=== PATIENT | female | born 1935 | race Caucasian/White ===

== ENCOUNTER 2017-12-11 10:40 | Day surgery (SDC) | payer OTHER ==
--- NOTE | 2017-12-09 12:15 | RAD REPORT ---
EXAM DESCRIPTION: RAD - Chest Pa And Lat (2 Views) - 12/09/2017 12:09 pm CLINICAL HISTORY: Pelvic pain Chest pain. COMPARISON: CHEST SINGLE VIEW dated 06/25/2014; CHEST SINGLE VIEW dated 03/10/2012 FINDINGS: Emphysematous changes are present with ill-defined scarring in both apices, greater on the right. No focal infiltrate is detected. Significant cardiomegaly seen. Blunting of the costophrenic angles likely represents pleural thickening or small pleural effusions. No displaced fractures. IMPRESSION: Moderate cardiomegaly. Prominent COPD.
[2017-12-09 12:30] LABS: Urine Appearance CLEAR; Urine Bilirubin NEGATIVE (NEG); Urine Blood NEGATIVE (NEG); Urine Color YELLOW; Urine Glucose NEGATIVE (NEG); Urine Protein NEGATIVE (NEG); Urine Urobilinogen 0.2 mg/dL (0.2-1.0)
[2017-12-09 12:32] LABS: Absolute Lymphocytes (CBC) 1.5 K/uL (0.7-4.9); Absolute Monocytes 0.6 K/uL (0.1-1.3); Absolute Neutrophil 3.6 K/uL (1.8-8.0); Basophils % 0.7 % (0-1.3); Eosinophils % 1.4 % (0-4.4); Hematocrit 39.6 % (36.0-45.0); Lymphocytes % 25.7 % (15.3-44.8); MCV 87.6 fL (80-100); MPV 9.6 fL (7.6-11.3); Monocytes % 10.6 % (3.3-12.3); RBC Red Blood Cell Count 4.52 M/uL (3.86-4.86)
[2017-12-09 12:32] LABS: Urine Microscopic Reflex ORDER UMIC
[2017-12-09 12:34] LABS: Potassium 3.7 mmol/L (3.5-5.1); Protime INR 1.7
[2017-12-09 13:14] LABS: Urine Bacteria <20 /HPF (<20); Urine RBC <5 /HPF (NONE SEEN)
[2017-12-09 13:15] LABS: Urine Culture Reflex Order REFLEXED
--- NOTE | 2017-12-09 13:23 | EKG ---
Test Date: 2017-12-09 Test Time: 11:54:10 General Ii Farmworker: JONATAN MEASUREMENT RESULTS: Intervals: Rate: 68 FL: QRSD: 82 QT: 412 QTc: 438 [place]: P: FL: QRS: 1 T: 18 INTERPRETIVE STATEMENTS: Atrial fibrillation with a competing junctional pacemaker Moderate voltage criteria for LVH, may be normal variant Cannot rule out Septal infarct, age undetermined Abnormal ECG Compared to ECG 06/25/2014 12:28:58 Left ventricular hypertrophy now present Myocardial infarct finding still present Electronically Signed On 12-09-17 13:22:14 CDT by Keith Abraham
[2017-12-11] MEDS ORDERED: PROPOFOL 200 MG/20 ML VIAL IV ONE (11:24)
[2017-12-11] MEDS ORDERED: FENTANYL CITR 100 MCG/2 ML ONE (11:25)
[2017-12-11] MEDS ORDERED: LIDOCAINE 2% MPF 5 ML VIAL ONE (11:25)
[2017-12-11] MEDS ORDERED: Ringers Lactate 1,000 ML IV ONE (11:26)
[2017-12-11] MEDS ORDERED: GENTAMICIN 100 MG/100 ML BAG 100 MG/100 ML BAG IV ONE (11:26)
[2017-12-11] MEDS ORDERED: ONDANSETRON HCL 40 MG/20 ML VIAL ONE (11:26)
[2017-12-11] MEDS ORDERED: mitoMYcin 40 MG in WATER FOR INJ,STERILE 50 ML IV ONE (12:00)
[2017-12-11 14:52] VITALS: BP 163/92; TEMP 97.1; O2SAT 96
== END 2017-12-11 14:28 | disposition home or self-care (01) ==
LOC: OR 10:40
PROVIDERS: ATTEND Urology
PROC: 0TJB8ZZ Inspection of Bladder, Via Natural or Artificial Opening Endoscopic (ICD-10-PCS; principal; 2017-12-11 12:00)
DX: K57.30 Diverticulosis of large intestine without perforation or abscess without bleeding (principal); E78.00 Pure hypercholesterolemia, unspecified; I10 Essential (primary) hypertension; R31.0 Gross hematuria; I48.2 Chronic atrial fibrillation
CPT/HCPCS: 36415; 52000; 71046; 80048; 85025; 85610; 85730; 87086; 87088; 93005; J1580; J2405; J3010; 81003; 81015; J9280

== ENCOUNTER 2019-05-19 08:20 | Emergency (ER) | payer OTHER ==
[2019-05-19] MEDS ORDERED: ONDANSETRON 4 MG (ODT) TAB ONE (08:52)
--- NOTE | 2019-05-19 09:22 | EDPHYS ---
Physician Documentation [facility] Name: Marcela Woodall Age: 83 yrs Sex: Female : 1935 Arrival Date: 05/19/2019 Time: 08:21 Bed 19 Private MD: Disha Marsh C ED Physician Amari Mike HPI: 05/19 08:49 This 83 yrs old Female presents to ER via Ambulatory with complaints of Nose jr8 Bleed. 08:49 The patient presents with a nose bleed, that is apparently anterior, from the left jr8 nare, occurred spontaneously, that is intermittent small amount with clots, causative factors include: NOAC therapy. Onset: The symptoms/episode began/occurred acutely, yesterday. Modifying factors: The symptoms are alleviated by nothing. the symptoms are aggravated by blowing nose. Associated signs and symptoms: The patient has no apparent associated signs or symptoms. Severity of symptoms: At their worst the symptoms were mild in the emergency department the symptoms are unchanged. The patient has experienced a previous episode. The patient has not recently seen a physician. Historical: - Allergies: 08:45 Cilantro; ss 08:45 Horse Radish; ss - PMHx: 08:45 Atrial Fib; Hypertension; ss - PSHx: 08:45 Hysterectomy; ss - Immunization history:: Adult Immunizations up to date. - Social history:: Smoking status: Patient/guardian denies using tobacco. - Ebola Screening: : Patient denies exposure to infectious person Patient denies travel to an Ebola-affected area in the 21 days before illness onset. ROS: 08:49 Eyes: Negative for injury, pain, redness, and discharge, Neck: Negative for injury, jr8 pain, and swelling, Cardiovascular: Negative for chest pain, palpitations, and edema, Respiratory: Negative for shortness of breath, cough, wheezing, and pleuritic chest pain, Abdomen/GI: Negative for abdominal pain, nausea, vomiting, diarrhea, and constipation, Back: Negative for injury and pain, MS/Extremity: Negative for injury and deformity, Skin: Negative for injury, rash, and discoloration, Neuro: Negative for headache, weakness, numbness, tingling, and seizure. 08:49 ENT: Positive for nose bleed. Exam: 08:49 Eyes: Pupils equal round and reactive to light, extra-ocular motions intact. Lids and jr8 lashes normal. Conjunctiva and sclera are non-icteric and not injected. Cornea within normal limits. Periorbital areas with no swelling, redness, or edema. Neck: Trachea midline, no thyromegaly or masses palpated, and no cervical lymphadenopathy. Supple, full range of motion without nuchal rigidity, or vertebral point tenderness. No Meningismus. Cardiovascular: Regular rate and rhythm with a normal S1 and S2. No gallops, murmurs, or rubs. Normal PMI, no JVD. No pulse deficits. Respiratory: Lungs have equal breath sounds bilaterally, clear to auscultation and percussion. No rales, rhonchi or wheezes noted. No increased work of breathing, no retractions or nasal flaring. Abdomen/GI: Soft, non-tender, with normal bowel sounds. No distension or tympany. No guarding or rebound. No evidence of tenderness throughout. Skin: Warm, dry with normal turgor. Normal color with no rashes, no lesions, and no evidence of cellulitis. MS/ Extremity: Pulses equal, no cyanosis. Neurovascular intact. Full, normal range of motion. Neuro: Awake and alert, GCS 15, oriented to person, place, time, and situation. Cranial nerves II-XII grossly intact. Motor strength 5/5 in all extremities. Sensory grossly intact. Cerebellar exam normal. Normal gait. 08:49 ENT: Exam is negative for earache, ear discharge, TM abnormalities, sinus tenderness, pharyngitis, exudate, Nose: External nose: no obvious acute abnormality, Nasal septum: is midline, Nasal mucosa: moist, bleeding, is seen from the left nare, and is moderate, clotted blood, in left nare, Examination of the other nostril shows no obvious abnormality. Vital Signs: 08:45 BP 135 / 86; Pulse 109; Resp 18; Temp 97.2(O); Pulse Ox 98% on R/A; Pain 0/10; ss Procedures: 08:49 Epistaxis treatment: A moderate amount of bleeding noted from left nare. Treated using jr8 rhino rocket, Bleeding stopped. MDM: 08:24 Patient medically screened. 8 09:21 Data reviewed: vital signs, nurses notes. Data interpreted: Pulse oximetry: on room air jr8 is 98 %. Interpretation: normal. Counseling: I had a detailed discussion with the patient and/or guardian regarding: the historical points, exam findings, and any diagnostic results supporting the discharge/admit diagnosis, the need for outpatient follow up, an ENT specialist, to return to the emergency department if symptoms worsen or persist or if there are any questions or concerns that arise at home. ED course: Nasal epistaxis has stopped after packing. Will d/c home to f/u with ENT on . Has appointment set for that AM in [facility] . Administered Medications: 08:51 Drug: Zofran 4 mg Route: PO; ss 09:48 Follow up: Response: No adverse reaction; Nausea is decreased ss Disposition: 05/19/19 09:22 Discharged to Home. Impression: Epistaxis. - Condition is Stable. - Discharge Instructions: Nosebleed, Adult. - Prescriptions for Zofran 4 mg Oral Tablet - take 1 tablet by ORAL route every 12 hours As needed; 20 tablet. - Medication Reconciliation Form, Thank You Letter, Antibiotic Education, Prescription Opioid Use form. - Follow up: Private Physician; When: 48 Hours; Reason: Recheck today's complaints, Continuance of care, Re-evaluation by your physician. - Problem is new. - Symptoms have improved. Addendum: 05/25/2019 10:52 Co-signature as Attending Physician, Amari Mike MD I agree with the assessment and c lamas plan of care. Signatures: Amari Mike MD MD cha Smirch, Shelby, RN RN Tommy Raya PA PA jr8 Corrections: (The following items were deleted from the chart) 05/19 09:47 09:22 05/19/2019 09:22 Discharged to Home. Impression: Epistaxis. Condition is Stable. ss Forms are Medication Reconciliation Form, Thank You Letter, Antibiotic Education, Prescription Opioid Use. Follow up: Private Physician; When: 48 Hours; Reason: Recheck today's complaints, Continuance of care, Re-evaluation by your physician. Problem is new. Symptoms have improved. jr8
--- NOTE | 2019-05-19 09:22 | ER ---
Nurse's Notes [facility] Name: Marcela Woodall Age: 83 yrs Sex: Female : 1935 Arrival Date: 05/19/2019 Time: 08:21 Bed 19 Private MD: Disha Marsh C Diagnosis: Epistaxis Presentation: 05/19 08:43 Presenting complaint: Patient states: Nose bleed that began at 1700 last night. Pt ss takes Xarelto. Transition of care: patient was not received from another setting of care. Onset of symptoms was May 18, 2019. Risk Assessment: Do you want to hurt yourself or someone else? Patient reports no desire to harm self or others. Initial Sepsis Screen: Does the patient meet any 2 criteria? HR > 90 bpm. Does the patient have a suspected source of infection? No. Patient's initial sepsis screen is negative. Care prior to arrival: None. 08:43 Method Of Arrival: Ambulatory ss 08:43 Acuity: PRIETO 3 ss Historical: - Allergies: 08:45 Cilantro; ss 08:45 Horse Radish; ss - PMHx: 08:45 Atrial Fib; Hypertension; ss - PSHx: 08:45 Hysterectomy; ss - Immunization history:: Adult Immunizations up to date. - Social history:: Smoking status: Patient/guardian denies using tobacco. - Ebola Screening: : Patient denies exposure to infectious person Patient denies travel to an Ebola-affected area in the 21 days before illness onset. Screenin:46 Abuse screen: Denies threats or abuse. Denies injuries from another. Nutritional ss screening: No deficits noted. Tuberculosis screening: Never had TB. Fall Risk None identified. Assessment: 08:23 General: Appears uncomfortable, Behavior is calm, cooperative. Pain: Denies pain. ss Neuro: Level of Consciousness is awake, alert, obeys commands, Oriented to person, place, time, situation. Cardiovascular: Capillary refill < 3 seconds is brisk in bilateral fingers. Respiratory: Airway is patent Respiratory effort is even, unlabored, Respiratory pattern is regular, symmetrical. GI: Reports nausea, Patient currently denies diarrhea, vomiting. : No signs and/or symptoms were reported regarding the genitourinary system. Denies burning with urination, urinary frequency. EENT: Nares dry blood noted to L nare. Reports nose bleed that began at 1700 yesterday evening. Pt takes xarelto daily. Derm: Skin is pink, warm \T\ dry. normal. Musculoskeletal: Circulation, motion, and sensation intact. Range of motion: intact in all extremities. 09:14 Reassessment: Patient appears in no apparent distress at this time. Patient and/or ss family updated on plan of care and expected duration. Pain level reassessed. Patient is alert, oriented x 3, equal unlabored respirations, skin warm/dry/pink. Pt denies pain. No active bleeding noted at this time. Vital Signs: 08:45 BP 135 / 86; Pulse 109; Resp 18; Temp 97.2(O); Pulse Ox 98% on R/A; Pain 0/10; ss ED Course: 08:21 Patient arrived in ED. as 08:21 Disha Marsh MD is Private Physician. as 08:24 Tommy Raya PA is PHCP. jr8 08:24 Amari Mike MD is Attending Physician. jr8 08:43 Carina Cisneros, TOÑO is Primary Nurse. 08:44 Triage completed. ss 08:45 Arm band placed on right wrist. ss 08:46 Patient has correct armband on for positive identification. Bed in low position. Call ss light in reach. Side rails up X 1. Pulse ox on. NIBP on. 08:46 Nasal rocket insertion L nare. Inserted by DIPESH Lynn. 09:35 Patient did not have IV access during this emergency room visit. ss Administered Medications: 08:51 Drug: Zofran 4 mg Route: PO; ss 09:48 Follow up: Response: No adverse reaction; Nausea is decreased Outcome: 09:22 Discharge ordered by . jr8 09:35 Discharged to home via wheelchair, with family. ss 09:35 Condition: good 09:35 Discharge instructions given to patient, family, Instructed on discharge instructions, follow up and referral plans. medication usage, Demonstrated understanding of instructions, follow-up care, medications. 09:47 Patient left the ED. Signatures: Heather Andres Shelby, RN RN Tommy Raya PA PA jrPaul Corrections: (The following items were deleted from the chart) 08:47 08:46 Nasal rocket insertion L nare ss ss
[2019-05-19 09:56] VITALS: BP 135/86; TEMP 97.2; O2SAT 98
== END 2019-05-19 09:47 | disposition home or self-care (01) ==
LOC: ER 08:20
PROC: 2Y41X5Z Packing of Nasal Region using Packing Material (ICD-10-PCS; principal; 2019-05-19)
DX: R04.0 Epistaxis (principal); I10 Essential (primary) hypertension; Z91.018 Allergy to other foods
CPT/HCPCS: 30901; 99283

== ENCOUNTER 2020-12-17 10:23 | Emergency (ER) | payer OTHER ==
[2020-12-17 11:23] LABS: Urine Blood 3+ (Negative); Urine Glucose Trace (Negative); Urine Protein 3+ (Negative); Urine pH 5.5 (5.0-7.0)
[2020-12-17 11:52] LABS: Urine Bacteria 20-50 /HPF (<20); Urine RBC LOADED /HPF (NONE SEEN)
--- NOTE | 2020-12-17 12:38 | RAD REPORT ---
EXAM DESCRIPTION: CT - Stone Protocol - 12/17/2020 12:20 pm CLINICAL HISTORY: Abdominal pain. HEMATURIA COMPARISON: Abdomen Pelvis W/Wo Contrast dated 10/30/2017 TECHNIQUE: CT imaging of the abdomen and pelvis was performed without contrast. Solid organ, bowel a nd vascular assessment is limited due to lack of IV and oral contrast. All CT scans are performed using dose optimization technique as appropriate and may include automated exposure control or mA/KV adjustment according to patient size. FINDINGS: The lower lung vernon are clear.Cardiomegaly. Left interpolar renal cyst noted. No hydronephrosis identified. No ureteral calculi identified. The s pleen is unremarkable. Adrenal glands unremarkable. Mild circumferential bladder wall thickening.Athe rosclerosis. No bowel obstruction, free air, free fluid or abscess. Hysterectomy. Multilevel degenerative changes are present spine. No acute fracture. IMPRESSION: Bladder wall thickening with stranding may indicate cystitis. No other acute findings id entified per A limited non-contrast examination was performed as detailed.
--- NOTE | 2020-12-17 12:56 | ER ---
Nurse's Notes [facility] Name: Marcela Woodall Age: 85 yrs Sex: Female : 1935 Arrival Date: 12/17/2020 Time: 10:24 Bed 25 Private MD: Disha Marsh C Diagnosis: Acute cystitis with hematuria Presentation: 12/17 10:57 Chief complaint: Patient states: is having pressure in her bladder area since early iw this morning and back has been hurting for a few days, noticed some blood on her pad this morning , felt something pass like a BM but through her urethra , is unsure if it was vaginal bleeding. Coronavirus screen: At this time, the client does not indicate any symptoms associated with coronavirus-19. Ebola Screen: Patient negative for fever greater than or equal to 101.5 degrees Fahrenheit, and additional compatible Ebola Virus Disease symptoms Patient denies exposure to infectious person. Patient denies travel to an Ebola-affected area in the 21 days before illness onset. No symptoms or risks identified at this time. Initial Sepsis Screen: Does the patient meet any 2 criteria? No. Patient's initial sepsis screen is negative. Does the patient have a suspected source of infection? No. Patient's initial sepsis screen is negative. Risk Assessment: Do you want to hurt yourself or someone else? Patient reports no desire to harm self or others. Onset of symptoms was December 17, 2020. 10:57 Method Of Arrival: Ambulatory iw 10:57 Acuity: PRIETO 3 iw Historical: - Allergies: 11:02 Cilantro; iw 11:02 Horse Radish; iw - PMHx: 11:02 Atrial Fib; Hypertension; Hypertension; iw - PSHx: 11:02 hysterectomy; iw - Immunization history:: Client reports receiving the 2nd dose of the Covid vaccine. - Social history:: Smoking status: Patient denies any tobacco usage or history of. - Family history:: not pertinent. - Hospitalizations: : No recent hospitalization is reported. Screenin:34 Abuse screen: Denies threats or abuse. Denies injuries from another. Nutritional zb screening: No deficits noted. Tuberculosis screening: No symptoms or risk factors identified. Fall Risk None identified. Assessment: 11:59 Reassessment: ECP at bedside discussing care. zb 12:00 General: Appears in no apparent distress. comfortable, Behavior is calm, cooperative, zb appropriate for age. Pain: Complains of pain in low back area and pelvis Quality of pain is described as pressure, Pain began today. Neuro: Level of Consciousness is awake, alert, obeys commands, Oriented to person, place, time, situation. Cardiovascular: Patient's skin is warm and dry. Respiratory: Airway is patent. : Reports discharge, bloody, pain in lower back with urination. Derm: Skin is intact, is healthy with good turgor, is thin. Musculoskeletal: Range of motion: intact in all extremities. Vital Signs: 10:57 BP 121 / 88; Pulse 96; Resp 16; Temp 97.5; Pulse Ox 95% on R/A; Weight 60.78 kg; Height iw 5 ft. 5 in. (165.10 cm); 13:07 BP 120 / 84; Pulse 87; Resp 16; Pulse Ox 95% on R/A; zb 10:57 Body Mass Index 22.30 (60.78 kg, 165.10 cm) iw ED Course: 10:24 Patient arrived in ED. mr 10:25 Disha Marsh MD is Private Physician. mr 11:02 Triage completed. iw 11:02 Arm band placed on. iw 11:51 Jovan Duran MD is Attending Physician. rn 11:59 Yulia Suarez RN is Primary Nurse. zb 12:20 CT Stone Protocol In Process Unspecified. EDMS 12:34 Patient has correct armband on for positive identification. Bed in low position. Call zb light in reach. Pulse ox on. NIBP on. Door closed. Noise minimized. 12:56 Disha Marsh MD is Referral Physician. rn 13:07 No provider procedures requiring assistance completed. Patient did not have IV access zb during this emergency room visit. Administered Medications: 12:50 Drug: Rocephin (cefTRIAXone) 1 grams Route: IM; Site: right gluteus; zb 13:07 Follow up: Response: No adverse reaction zb 13:06 Not Given (Other Intervention Used): Rocephin (cefTRIAXone) 1 grams IV at calculated zb rate once; Given slow IV push per pharmacy instructions Outcome: 12:56 Discharge ordered by . rn 13:07 Discharged to home ambulatory. zb 13:07 Condition: stable 13:07 Discharge instructions given to patient, Instructed on discharge instructions, follow up and referral plans. medication usage, Demonstrated understanding of instructions, follow-up care, medications, Prescriptions given X 1. 13:08 Patient left the ED. carmel Signatures: Dispatcher [employer] JOHNAR Clarita Cesar Irene, RN Jovan Christina MD MD rn Brown, TOÑO Bender RN
--- NOTE | 2020-12-17 12:56 | EDPHYS ---
Physician Documentation [facility] Name: Marcela Woodall Age: 85 yrs Sex: Female : 1935 Arrival Date: 12/17/2020 Time: 10:24 Bed 25 Private MD: Disha Marsh C ED Physician Jovan Duran HPI: 12/17 12:05 This 85 yrs old Female presents to ER via Ambulatory with complaints of rn Urinary Problem. 12:05 The patient presents with urinary symptoms, dysuria, frequency, hematuria. Onset: The rn symptoms/episode began/occurred last night. Modifying factors: The symptoms are alleviated by nothing, the symptoms are aggravated by nothing. Associated signs and symptoms: Pertinent positives: dysuria, hematuria, Pertinent negatives: fever, vaginal bleeding, vaginal discharge. Severity of symptoms: At their worst the symptoms were moderate, in the emergency department the symptoms have improved. The patient has not experienced similar symptoms in the past. The patient has not recently seen a physician. Patient reports increased urinary frequency and hematuria that began last night. No fever. No gross hematuria this morning. No history of kidney stones or kidney problems. Takes Xarelto for A. fib.. Historical: - Allergies: 11:02 Cilantro; iw 11:02 Horse Radish; iw - PMHx: 11:02 Atrial Fib; Hypertension; Hypertension; iw - PSHx: 11:02 hysterectomy; iw - Immunization history:: Client reports receiving the 2nd dose of the Covid vaccine. - Social history:: Smoking status: Patient denies any tobacco usage or history of. - Family history:: not pertinent. - Hospitalizations: : No recent hospitalization is reported. 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 12:05 Constitutional: Negative for fever, chills, and weight loss, Eyes: Negative for injury, pain, redness, and discharge, Neck: Negative for injury, pain, and swelling, Cardiovascular: Negative for chest pain, palpitations, and edema, Respiratory: Negative for shortness of breath, cough, wheezing, and pleuritic chest pain, Abdomen/GI: Negative for abdominal pain, nausea, vomiting, diarrhea, and constipation, Back: Negative for injury and pain, MS/Extremity: Negative for injury and deformity, Skin: Negative for injury, rash, and discoloration, Neuro: Negative for headache, weakness, numbness, tingling, and seizure. Exam: 12:05 Constitutional: This is a well developed, well nourished patient who is awake, alert, rn and in no acute distress. Head/Face: Normocephalic, atraumatic. Eyes: Pupils equal round and reactive to light, extra-ocular motions intact. Lids and lashes normal. Conjunctiva and sclera are non-icteric and not injected. Cornea within normal limits. Periorbital areas with no swelling, redness, or edema. Cardiovascular: Regular rate and rhythm. No pulse deficits. Respiratory: No increased work of breathing, no retractions or nasal flaring. Abdomen/GI: Soft, non-tender Back: No spinal tenderness. No costovertebral tenderness. Full range of motion. Skin: Warm, dry MS/ Extremity: Pulses equal, no cyanosis. Neuro: Awake and alert, GCS 15 Vital Signs: 10:57 BP 121 / 88; Pulse 96; Resp 16; Temp 97.5; Pulse Ox 95% on R/A; Weight 60.78 kg; Height iw 5 ft. 5 in. (165.10 cm); 13:07 BP 120 / 84; Pulse 87; Resp 16; Pulse Ox 95% on R/A; zb 10:57 Body Mass Index 22.30 (60.78 kg, 165.10 cm) iw MDM: 11:51 Patient medically screened. rn 12:53 Differential diagnosis: urinary tract infection, cystitis, pyelonephritis. Data rn reviewed: vital signs, nurses notes, lab test result(s), radiologic studies, CT scan, and as a result, I will discharge patient. Counseling: I had a detailed discussion with the patient and/or guardian regarding: the historical points, exam findings, and any diagnostic results supporting the discharge/admit diagnosis, lab results, radiology results, the need for outpatient follow up, to return to the emergency department if symptoms worsen or persist or if there are any questions or concerns that arise at home. Response to treatment: the patient's symptoms have mildly improved after treatment, and as a result, I will discharge patient. Special discussion: I discussed with the patient/guardian in detail that at this point there is no indication for admission to the hospital. It is understood, however, that if the symptoms persist or worsen the patient needs to return immediately for re-evaluation. ED course: No acute findings on CT other than acute cystitis, likely microscopic hematuria because of patient taking Xarelto. Stable vital signs, nontoxic appearance. Will DC home with antibiotics and recommend holding Xarelto for a couple of days and PCP follow-up. Return precautions given and understood.. 12/17 11:22 Order name: Urine Microscopic Only; Complete Time: 11:53 sv 12/17 11:22 Order name: Urine Culture sv 12/17 11:23 Order name: Urine Dipstick-Ancillary; Complete Time: 11:26 EDMS 12/17 11:36 Order name: CT Stone Protocol; Complete Time: 12:42 rn 12/17 11:05 Order name: Urine Dipstick-Ancillary (obtain specimen); Complete Time: 11:22 iw Administered Medications: 12:50 Drug: Rocephin (cefTRIAXone) 1 grams Route: IM; Site: right gluteus; zb 13:07 Follow up: Response: No adverse reaction zb 13:06 Not Given (Other Intervention Used): Rocephin (cefTRIAXone) 1 grams IV at calculated zb rate once; Given slow IV push per pharmacy instructions Disposition Summary: 12/17/20 12:56 Discharge Ordered Location: Home rn Problem: new rn Symptoms: have improved rn Condition: Stable rn Diagnosis - Acute cystitis with hematuria rn Followup: rn - With: Disha Marsh MD - When: As needed - Reason: Recheck today's complaints, Re-evaluation by your physician Discharge Instructions: - Discharge Summary Sheet rn - Hematuria, Adult rn - Urinary Tract Infection, Adult rn Forms: - Medication Reconciliation Form rn - Thank You Letter rn - Antibiotic 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 EDDE EDMS
[2020-12-17 13:16] VITALS: TEMP 97.5; O2SAT 95
[2020-12-17 13:19] VITALS: BP 120/84
[2020-12-17] MEDS ORDERED: CEFTRIAXONE 1000 MG/VIAL ONE (13:22)
== END 2020-12-17 13:08 | disposition home or self-care (01) ==
LOC: ER 10:23
DX: N30.01 Acute cystitis with hematuria (principal); I10 Essential (primary) hypertension; I48.91 Unspecified atrial fibrillation; Z79.01 Long term (current) use of anticoagulants; Z91.018 Allergy to other foods
CPT/HCPCS: 74176; 76377; 81003; 81015; 87077; 87086; 87088; 87186; 96372; 99284

== ENCOUNTER 2021-04-03 07:14 | Day surgery (SDC) | payer OTHER ==
[2021-03-30 10:38] LABS: Potassium 3.7 mmol/L (3.5-5.1)
--- NOTE | 2021-03-30 11:25 | RAD REPORT ---
EXAM DESCRIPTION: RAD - Chest Pa And Lat (2 Views) - 03/30/2021 10:53 am CLINICAL HISTORY: PRE OP COMPARISON: Chest Pa And Lat (2 Views) dated 03/31/2019; Chest Pa And Lat (2 Views) dated 12/09/2017; CHEST SINGLE VIEW dated 06/25/2014; CHEST SINGLE VIEW dated 03/10/2012; Stone Protocol dated 12/17/2020 FINDINGS: Lines: None. Lungs: No evidence of edema or pneumonia. Emphysema. Biapical scarring. Pleural: No significant pleural effusions or pneumothorax. Cardiac: Cardiomegaly. Bones: No acute fractures. Other: IMPRESSION: Emphysema without superimposed acute process
--- NOTE | 2021-03-31 20:40 | EKG ---
Test Date: 2021-03-30 Test Time: 10:05:06 Pack Room Operator: INDERJIT MEASUREMENT RESULTS: Intervals: Rate: 80 [place]: QRSD: 80 QT: 364 QTc: 419 [place]: P: [place]: QRS: 53 T: 73 INTERPRETIVE STATEMENTS: Atrial fibrillation Minimal voltage criteria for LVH, may be normal variant Septal infarct, age undetermined Abnormal ECG Compared to ECG 12/09/2017 11:54:10 No significant changes Electronically Signed On 03-31-21 20:35:23 ROUNDING MACHINE OPERATOR by Beka Steward
[2021-04-03] MEDS ORDERED: Ringers Lactate 1,000 ML IV ONE (07:35)
[2021-04-03] MEDS ORDERED: CEFAZOLIN/NS 1gm 1 GM/50 ML BAG ONE (07:35)
[2021-04-03] MEDS ORDERED: LIDOCAINE 1% MPF 30 ML VIAL ONE (08:02)
[2021-04-03] MEDS ORDERED: LIDOCAINE 2% MPF 5 ML VIAL ONE ×2 (08:07→09:08)
[2021-04-03] MEDS ORDERED: ONDANSETRON 4 MG/2 ML VIAL ONE (08:07)
[2021-04-03] MEDS ORDERED: Mastisol Adhesive Liq ONE (08:07)
[2021-04-03] MEDS ORDERED: propofoL 200 MG/20 ML VIAL IV ONE (08:07)
[2021-04-03] MEDS ORDERED: FENTANYL CITR 100 MCG/2 ML ONE ×2 (08:07→09:08)
[2021-04-03] MEDS ORDERED: SODIUM BICARB 50 MEQ/50ML VIAL ONE (08:18)
[2021-04-03] MEDS ORDERED: MIDAZOLAM HCL 2 MG/2 ML INJ ONE (09:08)
[2021-04-03] MEDS ORDERED: CODEINE 30MG/APAP 300MG TAB ONE (09:37)
--- NOTE | 2021-04-03 09:46 | OP ---
Date of Procedure: 04/03/2021 Surgeon: Aditya Hernandez MD Vice President For Instruction: JENNIE Nuñez Preoperative Diagnosis: Eye vision change and left-sided headache, rule out temporal arteritis. Postoperative Diagnosis: Eye vision change and left-sided headache, rule out temporal arteritis. Procedure: Left temporal artery biopsy, ultrasound-guided. Estimated Blood Loss: Minimal. Specimen: Left temporal artery. Findings: As above. Anesthesia: MAC. Complications: None. Disposition: The patient tolerated the procedure in stable condition and taken to Recovery in good g eneral condition. Procedure In Detail: The patient was brought to the OR and placed in prone position. General anesth esia begun. The patient was prepped and draped in the usual sterile fashion. Then, ultrasound was u sed to locate a branch of the temporal artery anterior and superior to the left ear, and then lidocai ne with bicarb 1% was infiltrated locally. Then, a 15 blade was used to make a 4 cm incision. Subcu taneous tissue divided. Branch of the temporal artery identified proximal and distal and side branch es, isolated, clamped and then a 4 cm segment of the temporal artery excised and sent to Pathology. Then, 4-0 silk used to tie off all the ends and wound irrigated, bleeding controlled with cautery and 4-0 chromic used to approximate the subcutaneous tissue and close the skin. Sterile dressing applie d. The patient was awakened and taken to Recovery in good general condition. Discharge Note: The patient will go to Day Surgery and home when stable. Disposition: Home. Condition: Stable. Discharge Instructions: Resume home medications and diet. Activity as tolerated. No heavy lifting. Remove outer dressing in 2 days. Shower. Keep wound clean and dry. Follow up in my office in 2 w eeks. Call for appointment. Follow up with Dr. Montaño in 1 week. Tylenol No.3 one tablet p.o. q. 4 p.r.n. pain. /MODL Voice ID: [id number] Report ID: [id number]
[2021-04-03] MEDS ORDERED: HYDRALAZINE HCL 20 MG/ML VIAL ONE (10:02)
[2021-04-03 10:38] VITALS: O2SAT 98
[2021-04-03 11:12] VITALS: BP 134/85; TEMP 97
== END 2021-04-03 11:09 | disposition home or self-care (01) ==
LOC: OR 07:14
PROVIDERS: ATTEND Surgery
PROC: 03BT0ZX Excision of Left Temporal Artery, Open Approach, Diagnostic (ICD-10-PCS; principal; 2021-04-03 08:30)
DX: H53.9 Unspecified visual disturbance (principal); R51.9 Headache, unspecified; Z20.822 Contact with and (suspected) exposure to COVID-19
CPT/HCPCS: 93005; 80048; 36415; 88305; 71046; 37609; U0003; J0360; J2704; J3010; J0690; J7120; J2405; J2250